=== PATIENT | female | born 1980 | race Caucasian/White ===

== ENCOUNTER 2019-02-16 12:28 | Outpatient (CLI) | payer MEDICAID ==
[~2019-02-16] VITALS: Ht 160 cm; Wt 63.6 kg
[2019-02-16 13:00] VITALS: BP 131/75
[2019-02-16 13:41] LABS: MICROSCOPIC NOT IND
[2019-02-16 13:48] LABS: AMPHETAMINE SCREEN, URINE Negative (Negative); BARBITURATE SCREEN, URINE Negative (Negative); BENZODIAZEPINE SCREEN, URINE Negative (Negative); CANNABINOID SCREEN, URINE Negative (Negative); COCAINE SCREEN, URINE Negative (Negative); METHADONE SCREEN, URINE Positive (Negative); OPIATE SCREEN, URINE Negative (Negative)
[2019-02-16] MEDS ORDERED: METH40TA3 PO (14:59)
[2019-02-16] MEDS ORDERED: PREN1TAB10 PO (14:59)
== END 2019-02-16 15:07 | disposition home or self-care (01) ==
LOC: LDOP 12:28
PROVIDERS: ATTEND Obstetrics & Gynecology
DX: O42.913 Preterm premature rupture of membranes, unspecified as to length of time between rupture and onset of labor, third trimester (principal); Z3A.29 29 weeks gestation of pregnancy
CPT/HCPCS: 59025; 80307; 81003; 87086; 89060; G0463; Q0114

== ENCOUNTER 2019-04-01 11:08 | Outpatient (CLI) | payer MEDICAID ==
[~2019-04-01] VITALS: Ht 160 cm; Wt 67.7 kg
[~2019-04-01 11:08] MED LIST: METH40TA3 PO; PREN1TAB10 PO
[2019-04-01 12:02] LABS: BASOPHILS # (AUTO) 0.01 x10^3/uL (0-0.1); BASOPHILS % (AUTO) 0 % (0-1); EOSINOPHILS # (AUTO) 0.01 x10^3/uL (0-0.4); EOSINOPHILS % (AUTO) 0 % (1-7); LYMPHOCYTES # (AUTO) 2.01 x10^3/uL (1-3.4); LYMPHOCYTES % (AUTO) 21 % (22-44); MD NO; MEAN CORPUSCULAR HEMOGLOBIN 28.9 pg (27.0-34.8); MEAN CORPUSCULAR HGB CONC 32.3 g/dL (32.4-35.8); MEAN CORPUSCULAR VOLUME 89.3 fL (80-100); MEAN PLATELET VOLUME 9.4 fL (7.4-10.4); MONOCYTES # (AUTO) 0.58 x10^3/uL (0.2-0.8); MONOCYTES % (AUTO) 6 % (2-9); NEUTROPHILS # (AUTO) 7.22 x10^3/uL (1.8-6.8); NEUTROPHILS % (AUTO) 73 % (42-75); PLATELET COUNT 167 x10^3/uL (130-400); RED BLOOD COUNT 4.63 x10^6/uL (3.82-5.3); RED CELL DISTRIBUTION WIDTH 14.1 % (9.6-15.2)
[2019-04-01 12:06] LABS: ALBUMIN 2.6 g/dL (3.4-5.0); ANION GAP 11 mmol/L (5-15); BILIRUBIN, DIRECT 0.1 mg/dL (0.1-0.2); CALCIUM 8.7 mg/dL (8.5-10.1); CHLORIDE 109 mmol/L (98-107)
[2019-04-01 12:09] LABS: ALANINE AMINOTRANSFERASE 18 U/L (12-78); ALKALINE PHOSPHATASE 359 U/L (45-117); BILIRUBIN,TOTAL 0.6 mg/dL (0.2-1.0); CREATININE 0.79 mg/dL (0.55-1.02); TOTAL PROTEIN 6.8 g/dL (6.4-8.2)
[2019-04-01 12:41] LABS: MICROSCOPIC INDICATED
[2019-04-01 12:53] LABS: AMPHETAMINE SCREEN, URINE Negative (Negative); BARBITURATE SCREEN, URINE Negative (Negative); BENZODIAZEPINE SCREEN, URINE Negative (Negative); CANNABINOID SCREEN, URINE Negative (Negative); COCAINE SCREEN, URINE Negative (Negative); METHADONE SCREEN, URINE Positive (Negative); OPIATE SCREEN, URINE Negative (Negative)
== END 2019-04-01 15:22 | disposition home or self-care (01) ==
LOC: LDOP 11:08
PROVIDERS: ATTEND Obstetrics & Gynecology
DX: Z34.93 Encounter for supervision of normal pregnancy, unspecified, third trimester (principal); Z3A.36 36 weeks gestation of pregnancy
CPT/HCPCS: 36415; 59025; 80053; 80307; 81001; 82248; 82570; 84156; 84550; 85025; 99211; G0463

== ENCOUNTER 2019-04-07 21:23 | Inpatient (IN) | payer BC, MEDICAID ==
[~2019-04-07] VITALS: Ht 160 cm; Wt 67.7 kg
[2019-04-07] MEDS: D5%-LACTATED RINGERS 1,000 ML IV SCH (21:40)
[2019-04-07] MEDS ORDERED: OXYTOCIN 30U/ 0.9% NaCL 500ML 500 ML IV ONE (21:40)
[2019-04-07] MEDS ORDERED: FENTANYL/BUPIV./NS/PF 250 ML EPIDCONT SCH (21:47)
[2019-04-07] MEDS ORDERED: OXYTOCIN 30U/ 0.9% NaCL 500ML 500 ML ONE (21:56)
[2019-04-07] MEDS ORDERED: LIDOCAINE 1%, 20ML ONE (21:56)
[2019-04-07] MEDS ORDERED: MISOPROSTOL 200 MCG TABLET ONE (21:57)
[2019-04-07] MEDS ORDERED: SODIUM CITRATE/CITRIC ACID 15 ML UDC PO PRN (22:00)
[2019-04-07] MEDS ORDERED: FENTANYL PF 100 MCG/2ML IVPush PRN (22:00)
[2019-04-07] MEDS ORDERED: MISOPROSTOL 25 MCG TABLET PO PRN (22:00)
[2019-04-07] MEDS ORDERED: CALCIUM CARBONATE 500 MG TAB.CHEW PO PRN (22:00)
[2019-04-07] MEDS ORDERED: ONDANSETRON 2MG/ML, 2ML IVPush PRN (22:00)
[2019-04-07] MEDS ORDERED: METOCLOPRAMIDE 5 MG/ML, 2ML IVPush PRN (22:00)
[2019-04-07] MEDS ORDERED: MISOPROSTOL 25 MCG TABLET VG PRN (22:00)
[2019-04-07] MEDS ORDERED: TERBUTALINE 1 MG/ML, 1ML SQ PRN (22:00)
[2019-04-07] MEDS ORDERED: FENTANYL PF 100 MCG/2ML IV PRN (22:00)
[2019-04-07] MEDS ORDERED: ALUMINUM/MAG/SIMETHICONE 30 ML UDC PO PRN (22:00)
[2019-04-07] MEDS ORDERED: TERBUTALINE 1 MG/ML, 1ML IVPush PRN ×2 (22:00)
[2019-04-07 22:12] VITALS: BP 134/80
[2019-04-07 22:34] LABS: BASOPHILS # (AUTO) 0.01 x10^3/uL (0-0.1); BASOPHILS % (AUTO) 0 % (0-1); EOSINOPHILS # (AUTO) 0.03 x10^3/uL (0-0.4); EOSINOPHILS % (AUTO) 0 % (1-7); LYMPHOCYTES # (AUTO) 1.94 x10^3/uL (1-3.4); LYMPHOCYTES % (AUTO) 24 % (22-44); MD NO; MEAN CORPUSCULAR HEMOGLOBIN 28.6 pg (27.0-34.8); MEAN CORPUSCULAR HGB CONC 32.2 g/dL (32.4-35.8); MEAN CORPUSCULAR VOLUME 88.8 fL (80-100); MEAN PLATELET VOLUME 9.3 fL (7.4-10.4); MONOCYTES # (AUTO) 0.55 x10^3/uL (0.2-0.8); MONOCYTES % (AUTO) 7 % (2-9); NEUTROPHILS % (AUTO) 69 % (42-75); PLATELET COUNT 172 x10^3/uL (130-400); RED BLOOD COUNT 4.25 x10^6/uL (3.82-5.3)
[2019-04-07 22:45] LABS: ALANINE AMINOTRANSFERASE 22 U/L (12-78); ALBUMIN 2.5 g/dL (3.4-5.0); ANION GAP 9 mmol/L (5-15); BILIRUBIN, DIRECT 0.1 mg/dL (0.1-0.2); CALCIUM 8.3 mg/dL (8.5-10.1); CHLORIDE 109 mmol/L (98-107); CREATININE 0.74 mg/dL (0.55-1.02)
[2019-04-07 22:47] LABS: ALKALINE PHOSPHATASE 364 U/L (45-117); BILIRUBIN,TOTAL 0.4 mg/dL (0.2-1.0); TOTAL PROTEIN 6.3 g/dL (6.4-8.2)
[2019-04-07 22:52] LABS: MICROSCOPIC INDICATED
[2019-04-07] MEDS: LACTATED RINGERS 1,000 ML IV SCH (22:53)
[2019-04-07 23:04] LABS: AMPHETAMINE SCREEN, URINE Negative (Negative); BARBITURATE SCREEN, URINE Negative (Negative); BENZODIAZEPINE SCREEN, URINE Negative (Negative); CANNABINOID SCREEN, URINE Negative (Negative); COCAINE SCREEN, URINE Negative (Negative); METHADONE SCREEN, URINE Positive (Negative); OPIATE SCREEN, URINE Negative (Negative); PROTEIN/CREATININE RATIO,URINE 323 (0-200); TOTAL PROTEIN,URINE RANDOM 7 mg/dL (0-12)
[2019-04-08] MEDS: LACTATED RINGERS 1,000 ML IV SCH ×3 (03:28→17:09)
[2019-04-08] MEDS: D5%-LACTATED RINGERS 1,000 ML IV SCH ×3 (05:40→21:40)
[2019-04-08] MEDS ORDERED: OXYTOCIN 30U/ 0.9% NaCL 500ML 500 ML IV PRN (05:54)
[2019-04-08] MEDS ORDERED: METHADONE INTENSOL 10 MG/ML ORAL CONC ONE (06:23)
[2019-04-08] MEDS: METHADONE INTENSOL 10 MG/ML ORAL CONC PO SCH (06:31)
[2019-04-08] MEDS ORDERED: FENTANYL/BUPIV./NS/PF 250 ML EPIDCONT SCH (09:09)
[2019-04-08] MEDS ORDERED: FENTANYL PF 500 MCG, BUPIVACAINE/PF 0.5%, 30ML 62.5 ML in SODIUM CHLORIDE 0.9% 177.5 ML EPIDCONT SCH (09:30)
[2019-04-08] MEDS ORDERED: EPHEDRINE 50 MG/ML, 1ML IVPush PRN (09:30)
[2019-04-08] MEDS ORDERED: LACTATED RINGERS 1,000 ML IVBOLUS PRN (09:30)
[2019-04-08] MEDS ORDERED: NALOXONE 0.4 MG/ML, 1ML IVPush PRN (09:30)
[2019-04-08] MEDS ORDERED: BUPIVACAINE 0.25% ONE (11:20)
[2019-04-08] MEDS ORDERED: FENTANYL/BUPIV./NS/PF 250 ML EPIDCONT ONE (11:20)
[2019-04-08] MEDS ORDERED: EPHEDRINE 50 MG/ML, 1ML ONE (11:54)
[2019-04-08] MEDS ORDERED: NEWBORN KIT ONE (16:29)
[2019-04-08] MEDS: OXYTOCIN 30U/ 0.9% NaCL 500ML 500 ML IV SCH (16:46)
[2019-04-08] MEDS ORDERED: DOCUSATE 100 MG CAPSULE PO PRN (17:00)
[2019-04-08] MEDS ORDERED: CARBOPROST TROMETHAMINE 250 MCG/ML, 1ML IM PRN (17:00)
[2019-04-08] MEDS ORDERED: OXYcodone/APAP 5/325MG TABLET PO PRN ×2 (17:00)
[2019-04-08] MEDS ORDERED: MISOPROSTOL 200 MCG TABLET PR PRN (17:00)
[2019-04-08] MEDS ORDERED: METHYLERGONOVINE 0.2 MG/ML IM PRN (17:00)
[2019-04-08] MEDS ORDERED: ONDANSETRON 2MG/ML, 2ML IV PRN (17:00)
[2019-04-08] MEDS ORDERED: OXYTOCIN 30U/ 0.9% NaCL 500ML 500 ML ONE (18:30)
[2019-04-08 19:15] VITALS: BP 126/71
[2019-04-08] MEDS: IBUPROFEN 800 MG TABLET PO PRN (21:17)
[2019-04-08] MEDS: METHADONE 10 MG TABLET PO SCH (21:17)
[2019-04-09 00:25] VITALS: BP 111/63
[2019-04-09 00:56] LABS: BASOPHILS # (AUTO) 0.04 x10^3/uL (0-0.1); BASOPHILS % (AUTO) 0 % (0-1); EOSINOPHILS % (AUTO) 0 % (1-7); LYMPHOCYTES % (AUTO) 10 % (22-44); MD NO; MEAN CORPUSCULAR HEMOGLOBIN 29.4 pg (27.0-34.8); MEAN CORPUSCULAR HGB CONC 33.2 g/dL (32.4-35.8); MEAN CORPUSCULAR VOLUME 88.5 fL (80-100); MEAN PLATELET VOLUME 9.6 fL (7.4-10.4); MONOCYTES # (AUTO) 0.71 x10^3/uL (0.2-0.8); MONOCYTES % (AUTO) 5 % (2-9); NEUTROPHILS # (AUTO) 13.32 x10^3/uL (1.8-6.8); NEUTROPHILS % (AUTO) 85 % (42-75); PLATELET COUNT 148 x10^3/uL (130-400); RED CELL DISTRIBUTION WIDTH 14.4 % (9.6-15.2)
[2019-04-09] MEDS: LACTATED RINGERS 1,000 ML IV SCH ×3 (01:09→17:09)
[2019-04-09] MEDS: OXYTOCIN 30U/ 0.9% NaCL 500ML 500 ML IV SCH ×2 (02:46→12:46)
[2019-04-09] MEDS ORDERED: RHOGAM FROM BLOOD BANK 1 NOTE EA IM/IV ONE (03:30)
[2019-04-09] MEDS: D5%-LACTATED RINGERS 1,000 ML IV SCH ×2 (05:40→13:40)
[2019-04-09] MEDS ORDERED: METHADONE INTENSOL 10 MG/ML ORAL CONC ONE ×2 (06:26)
[2019-04-09] MEDS: METHADONE INTENSOL 10 MG/ML ORAL CONC PO SCH (06:31)
[2019-04-09 07:46] VITALS: BP 130/71
[2019-04-09] MEDS ORDERED: PRENATAL VIT/IRON/FA 1 EACH TABLET PO SCH (09:00)
[2019-04-09 13:27] VITALS: BP 137/77
[2019-04-09 19:35] VITALS: BP 128/76
[2019-04-09] MEDS: METHADONE 10 MG TABLET PO SCH (21:13)
[2019-04-09] MEDS: IBUPROFEN 800 MG TABLET PO PRN (21:13)
[2019-04-10] MEDS ORDERED: METHADONE INTENSOL 10 MG/ML ORAL CONC ONE (05:49)
[2019-04-10] MEDS: METHADONE INTENSOL 10 MG/ML ORAL CONC PO SCH (05:53)
[2019-04-10 07:30] VITALS: BP 147/80
[2019-04-10] MEDS ORDERED: IBUP-1223 PO (10:41)
[2019-04-10] MEDS ORDERED: DIPH,PERTUSS(ACELL),TET VAC/PF NC IM-VACC ONE ×2 (10:51→12:00)
== END 2019-04-10 16:39 | disposition home or self-care (01) | DRG 807 ==
LOC: LDIP 21:23 → 2NW 04-08 18:47
PROVIDERS: ADMIT Obstetrics & Gynecology; ATTEND Obstetrics & Gynecology
PROC: 10E0XZZ Delivery of Products of Conception, External Approach (ICD-10-PCS; principal; 2019-04-08)
PROC: 10907ZC Drainage of Amniotic Fluid, Therapeutic from Products of Conception, Via Natural or Artificial Opening (ICD-10-PCS; 2019-04-08)
PROC: 3E033VJ Introduction of Other Hormone into Peripheral Vein, Percutaneous Approach (ICD-10-PCS; 2019-04-08)
PROC: 3E0R3BZ Introduction of Anesthetic Agent into Spinal Canal, Percutaneous Approach (ICD-10-PCS; 2019-04-08)
PROC: 00HU33Z Insertion of Infusion Device into Spinal Canal, Percutaneous Approach (ICD-10-PCS; 2019-04-08)
PROC: 3E0234Z Introduction of Serum, Toxoid and Vaccine into Muscle, Percutaneous Approach (ICD-10-PCS; 2019-04-09)
DX: O14.94 Unspecified pre-eclampsia, complicating childbirth (principal); Z37.0 Single live birth; O69.81X0 Labor and delivery complicated by cord around neck, without compression, not applicable or unspecified; O99.324 Drug use complicating childbirth; F19.90 Other psychoactive substance use, unspecified, uncomplicated; F11.90 Opioid use, unspecified, uncomplicated; O13.4 Gestational [pregnancy-induced] hypertension without significant proteinuria, complicating childbirth; Z3A.37 37 weeks gestation of pregnancy
CPT/HCPCS: 36415; J2790; 80053; 80307; 81001; 82248; 82570; 84156; 84550; 85025; 85461; 86850; 86900; G0378; J3490; J2590; J3010; J7120